=== PATIENT | male | born 1945 | race Caucasian/White ===

== ENCOUNTER 2023-07-09 17:57 | Outpatient (CLI) | payer OTHER, MEDICARE, SELFPAY ==
[2023-07-09 18:33] LABS: Urine Appearance Clear (CLEAR); Urine Color Yellow (Yellow); pH Urine 6.5 (5-7)
[2023-07-09 18:34] LABS: Glucose Urine UA Norm (Normal); Ketones Urine 1+ (Negative); Protein Urine 1+ (Negative)
[2023-07-09 18:35] LABS: Add Urine Microscopic? YES; Bilirubin Urine 1+ (Negative); Blood Urine 2+ (Negative); Leukocyte Esterase Urine Trace (Negative); Nitrate Urine Positive (Negative); Urobilinogen Urine 4 mg/dL (Negative)
[2023-07-09 18:37] LABS: RBC Urine 0-4 /hpf (0-2); WBC Urine 0-4 /hpf (0-5)
[2023-07-09 18:38] LABS: Bacteria Urine 1+ /hpf; Mucus Urine 2+ /hpf; Sperm Urine 1+ /hpf
[2023-07-09 18:39] LABS: Add Urine Culture? Yes
== END 2023-07-09 17:58 | disposition home or self-care (01) ==
PROVIDERS: PCP Hospitalist; Visit Provider Hospitalist
DX: R82.998 Other abnormal findings in urine (principal)
CPT/HCPCS: 81001; 87086

== ENCOUNTER 2024-01-20 16:11 | Outpatient (CLI) | payer OTHER, MEDICARE, SELFPAY ==
[2024-01-20 16:23] LABS: Add Urine Microscopic? NO; Charge for UA Resulting for Rev
[2024-01-20 16:30] LABS: Bilirubin Urine Neg (Negative); Blood Urine Neg (Negative); Glucose Urine UA Norm (Normal); Ketones Urine Negative (Negative); Leukocyte Esterase Urine Negative (Negative); Nitrate Urine Negative (Negative); Protein Urine Neg (Negative); Urine Appearance Clear (CLEAR); Urine Color Colorless (Yellow); Urobilinogen Urine Norm (Negative); pH Urine 6 (5-7)
== END 2024-01-20 16:12 | disposition home or self-care (01) ==
PROVIDERS: PCP Hospitalist; Visit Provider Hospitalist
DX: Z01.89 Encounter for other specified special examinations (principal)
CPT/HCPCS: 81003